=== PATIENT | female | born 1995 | race Hispanic/Latino ===

== ENCOUNTER 2022-06-11 10:19 | Inpatient (IN) | payer OTHER ==
[2022-06-11] MEDS ORDERED: CEFAZOLIN 2 GM VIAL ONE (11:29)
[2022-06-11] MEDS ORDERED: Promethazine HCl 25 MG/ML VIAL IM PRN ×4 (11:30→17:48)
[2022-06-11] MEDS ORDERED: Famotidine/PF 20 mg/2ml Vial SLOW IVP PRN (11:30)
[2022-06-11] MEDS ORDERED: CEFAZOLIN 2 GM in Sodium Chloride 0.9% 100 ML IVPB SCH (11:30)
[2022-06-11] MEDS ORDERED: Bicitra 30 ML UDCUP PO PRN (11:30)
[2022-06-11] MEDS ORDERED: Famotidine/PF 20 mg/2ml Vial ONE (11:30)
[2022-06-11] MEDS ORDERED: Ondansetron PF 4 MG/2 ML Vial IVP PRN ×3 (11:30→16:27)
[2022-06-11] MEDS ORDERED: hydrALAZINE 20 MG/ML VIAL SLOW IVP PRN ×2 (11:30→16:27)
[2022-06-11] MEDS ORDERED: Lactated Ringer's 1,000 ML IV SCH (11:30)
[2022-06-11] MEDS ORDERED: Dexamethasone 4 mg/ml Vial ONE (12:04)
[2022-06-11] MEDS ORDERED: Phenylephrine 40 MG/NS 250 ML 250 ML ONE (12:04)
[2022-06-11] MEDS ORDERED: Morphine PF 10 MG/10 ML VIAL ONE (12:04)
[2022-06-11] MEDS ORDERED: Ondansetron PF 4 MG/2 ML Vial ONE (12:04)
[2022-06-11] MEDS ORDERED: ePHEDrine Sulfate 50 MG/10 ML VIAL ONE (12:04)
[2022-06-11] MEDS ORDERED: Oxytocin 10 UNITS/ML VIAL ONE (12:04)
[2022-06-11] MEDS ORDERED: Ketorolac Tromethamine 30 MG/ML VIAL ONE (12:51)
[2022-06-11 13:08] VITALS: BMI 46.0
[2022-06-11] MEDS: Fentanyl 100 MCG/2 ML VIAL ONE ×2 (13:19→14:39)
[2022-06-11] MEDS ORDERED: Ondansetron HCl/PF 4 MG/2 ML Vial IVP PRN (14:01)
[2022-06-11] MEDS ORDERED: Naloxone HCl 0.4 mg/ml Vial IV PRN (14:01)
[2022-06-11] MEDS ORDERED: Moisturizing Cream (Eucerin) 113 GM JAR TOP PRN (14:01)
[2022-06-11] MEDS ORDERED: Naloxone HCl 0.4 mg/ml Vial IVP PRN ×2 (14:01)
[2022-06-11] MEDS ORDERED: diphenhydrAMINE 50 MG/ML VIAL IVP PRN (14:01)
[2022-06-11] MEDS ORDERED: HYDROmorphone 2 MG/ML VIAL SLOW IVP PRN (14:01)
[2022-06-11] MEDS ORDERED: Fentanyl 100 MCG/2 ML VIAL SLOW IVP PRN (14:01)
[2022-06-11] MEDS ORDERED: Promethazine HCl 25 MG SUPP PR PRN (14:01)
[2022-06-11] MEDS ORDERED: Ketorolac Tromethamine 30 MG/ML VIAL IVP PRN (14:01)
[2022-06-11] MEDS ORDERED: Meperidine HCl/PF 25 MG/ML VIAL SLOW IVP PRN (14:01)
[2022-06-11] MEDS ORDERED: NS w/ Oxytocin 30 units 500 ML ONE (14:11)
[2022-06-11] MEDS ORDERED: Ketorolac Tromethamine 30 MG/ML VIAL IVP SCH (14:15)
[2022-06-11] MEDS ORDERED: Communication Order-Pharmacy FS SCH (14:15)
[2022-06-11] MEDS ORDERED: Fentanyl 100 MCG/2 ML VIAL ONE (14:38)
[2022-06-11] MEDS ORDERED: Lanolin Ointment 7 GM TUBE TOP PRN (16:27)
[2022-06-11] MEDS ORDERED: HYDROcodone/Acetaminophen 5/325 mg Tablet PO PRN (16:27)
[2022-06-11] MEDS ORDERED: diphenhydrAMINE 25 MG CAP PO PRN (16:27)
[2022-06-11] MEDS ORDERED: Bisacodyl 10 MG SUPP PR PRN (16:27)
[2022-06-11] MEDS ORDERED: Boostrix 0.5 ML (Tdap) VIAL (>/=7 yrs of age) IM ONE (16:27)
[2022-06-11] MEDS ORDERED: Simethicone Chewable 80 MG TAB PO PRN (16:27)
[2022-06-11] MEDS: Ketorolac Tromethamine 30 MG/ML VIAL IVP SCH (17:32)
[2022-06-11] MEDS ORDERED: Metoclopramide HCl 10 MG/2 ML VIAL IVP SCH (18:00)
[2022-06-11] MEDS: Ferrous Sulfate 325 MG TAB PO SCH (21:32)
[2022-06-11] MEDS: Docusate 100 MG CAP PO SCH (21:32)
[2022-06-12] MEDS: Ketorolac Tromethamine 30 MG/ML VIAL IVP SCH ×3 (00:30→21:04)
[2022-06-12 05:36] LABS: Hemoglobin 7.7 g/dL (12.0-15.5); Mean Corpuscular HGB CONC 30.7 g/dL (32.0-36.0); Mean Corpuscular Hemoglobin 23.6 pg (27.0-33.0); Mean Platelet Volume 11.6 fl (7.4-10.4); Platelet Count 163 10x3/uL (150-450); Red Blood Cell (RBC) Count 3.26 10x6/uL (3.90-5.03); White Blood Cell (WBC) Count 11.1 10x3/uL (3.5-10.5)
[2022-06-12] MEDS: HYDROcodone/Acetaminophen 5/325 mg Tablet PO PRN ×2 (13:16→18:16)
[2022-06-12] MEDS: Ibuprofen 800 MG TAB PO SCH ×2 (13:16→21:46)
[2022-06-12] MEDS: Docusate 100 MG CAP PO SCH ×2 (13:17→21:45)
[2022-06-12] MEDS: Ferrous Sulfate 325 MG TAB PO SCH ×2 (13:17→21:45)
[2022-06-12] MEDS: Prenatal Vitamin 1 TAB PO SCH (21:05)
[2022-06-13] MEDS: Ibuprofen 800 MG TAB PO SCH ×3 (05:03→21:15)
[2022-06-13] MEDS: Prenatal Vitamin 1 TAB PO SCH (08:15)
[2022-06-13] MEDS: Ferrous Sulfate 325 MG TAB PO SCH ×2 (08:15→21:15)
[2022-06-13] MEDS: Docusate 100 MG CAP PO SCH ×2 (08:15→21:15)
[2022-06-13] MEDS: HYDROcodone/Acetaminophen 5/325 mg Tablet PO PRN ×2 (14:29→20:30)
[2022-06-14] MEDS: Ibuprofen 800 MG TAB PO SCH ×2 (05:13→13:17)
[2022-06-14] MEDS: Ferrous Sulfate 325 MG TAB PO SCH (09:00)
[2022-06-14 11:38] VITALS: BP 130/79; TEMP 98.3
[2022-06-14] MEDS: Prenatal Vitamin 1 TAB PO SCH (13:18)
[2022-06-14] MEDS: Docusate 100 MG CAP PO SCH (13:18)
[2022-06-14] MEDS: HYDROcodone/Acetaminophen 5/325 mg Tablet PO PRN (13:23)
== END 2022-06-14 18:20 | disposition home or self-care (01) | DRG 787 ==
LOC: CSHLD 10:19 → CSHPED 16:10
PROVIDERS: ADMIT Family Medicine; ATTEND Family Medicine
PROC: 10D00Z1 Extraction of Products of Conception, Low, Open Approach (ICD-10-PCS; principal; 2022-06-11)
DX: O34.211 Maternal care for low transverse scar from previous cesarean delivery (principal); O99.354 Diseases of the nervous system complicating childbirth; Z3A.39 39 weeks gestation of pregnancy; Z37.0 Single live birth; G71.00 Muscular dystrophy, unspecified; N73.6 Female pelvic peritoneal adhesions (postinfective); O99.892 Other specified diseases and conditions complicating childbirth
CPT/HCPCS: 36415; 51702; 85027; 86850; 86900; 86901; J1100; J1885; J2274; J2405; J2550; J2590; J2765; J3010; J3490; J7120; S0028

== ENCOUNTER 2022-06-16 13:42 | Emergency (ER) | payer OTHER | END 2022-06-16 15:14 | disposition home or self-care (01) | LOC: CSHERS 13:42 | DX: O99.893 Other specified diseases and conditions complicating puerperium (principal); R21 Rash and other nonspecific skin eruption | CPT/HCPCS: 99282 ==